=== PATIENT | female | born 1995 | race Asian ===

== ENCOUNTER 2021-01-06 13:10 | Emergency (ER) | payer OTHER ==
[~2021-01-06] VITALS: Ht 154.9 cm; Wt 75.0 kg
[2021-01-06 15:14] VITALS: BP 141/81
== END 2021-01-06 15:38 | disposition home or self-care (01) ==
LOC: EMS 13:10
DX: R45.851 Suicidal ideations (principal)
CPT/HCPCS: 99285; Z7502